=== PATIENT | male | born 1970 | race Caucasian/White ===

== ENCOUNTER 2020-11-19 16:20 | Emergency (ER) | payer OTHER ==
[~2020-11-19] VITALS: Ht 170.2 cm; Wt 90.7 kg
[2020-11-19] MEDS ORDERED: METFORMIN HCL500 M3 PO (16:31)
[2020-11-19] MEDS ORDERED: [UNRECOGNIZED DRUG - OTHER] (16:31)
[2020-11-19] MEDS ORDERED: COZAAR 25 MG TA25 M1 PO (16:32)
[2020-11-19] MEDS ORDERED: LIPITOR10 MG PO (16:32)
[2020-11-19] MEDS ORDERED: CEPHALEXIN500 MG PO (20:05)
[2020-11-19 20:15] VITALS: BP 122/67
== END 2020-11-19 20:15 | disposition home or self-care (01) ==
LOC: M.ERS 16:20
DX: S61.217A Laceration without foreign body of left little finger without damage to nail, initial encounter (principal); E11.9 Type 2 diabetes mellitus without complications; Z79.899 Other long term (current) drug therapy; W26.8XXA Contact with other sharp object(s), not elsewhere classified, initial encounter; Y93.89 Activity, other specified; Y92.89 Other specified places as the place of occurrence of the external cause; Y99.8 Other external cause status